=== PATIENT | male | born 1995 | race Caucasian/White ===

== ENCOUNTER 2017-11-29 09:46 | Emergency (ER) | payer MEDICAID ==
[~2017-11-29] VITALS: Ht 182.9 cm; Wt 65.9 kg
[2017-11-29 10:53] VITALS: BP 131/83
[2017-11-29] MEDS ORDERED: IBUPROFEN 800 MG TABLET PO ONE (11:00)
== END 2017-11-29 11:54 | disposition home or self-care (01) ==
LOC: EMS 09:48
DX: S52.122A Displaced fracture of head of left radius, initial encounter for closed fracture (principal); V00.131A Fall from skateboard, initial encounter; Y93.I9 Activity, other involving external motion; Y92.89 Other specified places as the place of occurrence of the external cause; Y99.8 Other external cause status
CPT/HCPCS: 29105; 99284